=== PATIENT | female | born 1945 | race Caucasian/White ===

== ENCOUNTER 2016-06-02 14:48 | Inpatient (IN) | payer OTHER ==
[~2016-06-02] VITALS: Ht 162.6 cm; Wt 66.3 kg
[2016-06-02] VITALS (10 sets, daily range): BP systolic 80–141; BP diastolic 44–83
[~2016-06-02 14:48] MED LIST: ADVAIR 250/501 DISK IH; ALBUTEROL SULF8.5 GM IH; ALBUTEROL2.5 MG/3 M IH; AMLODIPINE BESY10 MG PO; AMOX TR-K CLV1 EAC4 PO; ASPIR-LOW81 MG PO; ASPIRIN EC325 MG PO; AUGMENTIN875 MG PO; CITALOPRAM HBR40 MG PO; COLACE100 MG PO; DUONEB 2.5-0.5 M3 ML IH; LIPITOR40 MG PO; LISINOPRIL20 MG PO; LISINOPRIL40 MG PO; LOMOTIL TABLET1 EACH PO; METOPROLOL SUCC25 MG PO; PEPCID20 MG PO; PRAVACHOL20 MG PO; TYLENOL REGULA325 MG PO; VENTOLIN HFA18 GM IH
[2016-06-02 20:12] LABS: BASE EXCESS 1.7 mEq/L (-3 to +3); BICARBONATE 27.2 mEq/L (22-26); CARBOXY HGB 1.6 % (0-5); METHEMOGLOBIN 1.8 % (0-1.5); PO2 94 mm Hg (80-100); pH 7.38 (7.35-7.45)
[2016-06-02 20:13] LABS: COMMENTS - BLOOD GASES A+C+; DEVICE VENT; FI02 40 %; PCO2 46 mm Hg (35-45); SITE RR
[2016-06-02 20:14] LABS: INSPIRATION TIME 1.05 seconds; MECHANICAL RATE 16 resp/min; MODE ACVC+; PEEP 5 CM/H20; TIDAL VOLUME 400 ML; TOTAL RESP RATE 16 resp/min
[2016-06-02 20:46] LABS: TROP-I INTERPRETATION NEGATIVE; TROPONIN-I 0.03 ng/mL (0.0-0.30)
[2016-06-02 20:59] LABS: METH RESISTANT S AUREUS PCR POSITIVE (NEGATIVE)
[2016-06-02 21:09] LABS: PROBE CHECK PASS
[2016-06-02 22:02] LABS: EOSINOPHIL (%) 0.1 % (0-5); HEMATOCRIT 31.4 % (36.0-46.0); IMMATURE GRANULOCYTE (%) 0.5 % (0.0-0.7); IMMATURE GRANULOCYTE COUNT 0.1 K/uL; LYMPHOCYTE COUNT 0.5 K/uL (1.0-2.8); MCH 26.2 PG (29.0-34.0); MCHC 30.3 G/DL (30.0-36.0); MCV 86.7 FL (83-99); MONOCYTE (%) 3.2 % (3-12); MONOCYTE COUNT 0.3 K/uL (0-0.8); NEUTROPHIL (%) 90.9 % (45-76); NEUTROPHIL COUNT 8.5 K/uL (1.8-6.4); RBC DIS.WIDTH-CV 14.8 % (11.8-14.6); RBC DIS.WIDTH-SD 46.8 % (39-53); RED BLOOD COUNT 3.62 M/uL (3.80-5.20); WHITE BLOOD COUNT 9.3 K/uL (4.1-10.2)
[2016-06-02 22:15] LABS: ANION GAP 10 MEQ/L (2-14); CHLORIDE 108 MEQ/L (99-109); MAGNESIUM 2.3 mg/dl (1.3-2.7); POTASSIUM 4.1 MEQ/L (3.7-5.4); SAMPLE HEMOLYSIS CHECK 1; SAMPLE ICTERIC CHECK 0; SAMPLE LIPEMIA CHECK 0; SODIUM 140 MEQ/L (136-147); TOTAL BILIRUBIN 0.4 MG/DL (0.0-1.0)
[2016-06-02 22:17] LABS: PROTHROMBIN TIME 10.4 (9.2-11.2)
[2016-06-02 22:21] LABS: ALKALINE PHOSPHATASE 67 IU/L (3-129); GFR ESTIMATE (CALCULATED) > 59 mL/min/; GLUCOSE 147 mg/dL (70-99); UREA NITROGEN (BUN) 12 mg/dL (9-23)
[2016-06-02 22:34] LABS: PTT 19.5 (25-32)
[2016-06-02 22:44] LABS: MEAN PLAT.VOLUME 11.3 uM^3 (9.5-12.4); PLAT.SUFFICIENCY DECREASED; PLATELET COUNT 28 K/uL (156-360)
[2016-06-03] VITALS (26 sets, daily range): BP systolic 71–155; BP diastolic 46–89
[2016-06-03 01:14] LABS: TROP-I INTERPRETATION NEGATIVE; TROPONIN-I 0.02 ng/mL (0.0-0.30)
[2016-06-03 02:50] LABS: ADD MIUA? YES; BILIRUBIN NEGATIVE; BLOOD MODERATE; COLOR YELLOW ((YELLOW)); GLUCOSE (STRIP) NEGATIVE; KETONES TRACE; LEUKOCYTES NEGATIVE; NITRITE NEGATIVE; PH, URINE 5.5 (5-8); PROTEIN (STRIP) TRACE; UROBILINOGEN 0.2 MG/DL (0.2-1.0)
[2016-06-03 03:16] LABS: EPITHELIAL CELLS RARE; MUCUS 3+; RED BLOOD CELLS 15-20 /HPF (0-5); WHITE BLOOD CELLS 0-5 /HPF (0-5)
[2016-06-03 03:17] LABS: BACTERIA 1+; CASTS PRESENT /LPF; CRYSTALS NONE SEEN; FINE GRANULAR CASTS RARE /LPF; HYALINE CASTS RARE /LPF; UCUL ADDED? NO
[2016-06-03 05:04] LABS: PROTHROMBIN TIME 10.5 (9.2-11.2)
[2016-06-03 05:11] LABS: HEMATOCRIT 26.8 % (36.0-46.0); MCH 26.4 PG (29.0-34.0); MCHC 30.6 G/DL (30.0-36.0); MCV 86.2 FL (83-99); RBC DIS.WIDTH-CV 14.5 % (11.8-14.6); RBC DIS.WIDTH-SD 43.9 % (39-53); RED BLOOD COUNT 3.11 M/uL (3.80-5.20); WHITE BLOOD COUNT 10.5 K/uL (4.1-10.2)
[2016-06-03 05:13] LABS: MEAN PLAT.VOLUME 9.9 uM^3 (9.5-12.4); PLATELET COUNT 136 K/uL (156-360)
[2016-06-03 05:22] LABS: TROP-I INTERPRETATION NEGATIVE; TROPONIN-I 0.03 ng/mL (0.0-0.30)
[2016-06-03 06:59] LABS: ALKALINE PHOSPHATASE 73 IU/L (3-129); ANION GAP 10 MEQ/L (2-14); CHLORIDE 107 MEQ/L (99-109); GFR ESTIMATE (CALCULATED) > 59 mL/min/; GLUCOSE 132 mg/dL (70-99); MAGNESIUM 2.2 mg/dl (1.3-2.7); POTASSIUM 3.8 MEQ/L (3.7-5.4); SAMPLE HEMOLYSIS CHECK 0; SAMPLE ICTERIC CHECK 0; SAMPLE LIPEMIA CHECK 0; SODIUM 140 MEQ/L (136-147); TOTAL BILIRUBIN 0.4 MG/DL (0.0-1.0); UREA NITROGEN (BUN) 13 mg/dL (9-23)
[2016-06-03 11:51] LABS: POINT-OF-CARE METER ID UU13113803
[2016-06-03 12:11] LABS: HEMATOCRIT 26.4 % (36.0-46.0); MCV 86.3 FL (83-99)
[2016-06-03 17:48] LABS: POINT-OF-CARE METER ID UU13113803
[2016-06-03 18:25] LABS: HEMATOCRIT 27.3 % (36.0-46.0); MCV 86.1 FL (83-99)
[2016-06-03 22:23] LABS: BASE EXCESS 3.1 mEq/L (-3 to +3); BICARBONATE 27.9 mEq/L (22-26); CARBOXY HGB 1.8 % (0-5); COMMENTS - BLOOD GASES A+C+; METHEMOGLOBIN 1.6 % (0-1.5); PCO2 43 mm Hg (35-45); PO2 84 mm Hg (80-100); SITE RR; pH 7.42 (7.35-7.45)
[2016-06-03 22:24] LABS: DEVICE VENT; FI02 30 %; INSPIRATION TIME 0.6 seconds; MECHANICAL RATE 12 resp/min; MODE A/C VC+; PEEP 5 CM/H20; TIDAL VOLUME 400 ML; TOTAL RESP RATE 15 resp/min
[2016-06-03 23:59] LABS: POINT-OF-CARE METER ID UU13113803
[2016-06-04] VITALS (24 sets, daily range): BP systolic 99–174; BP diastolic 44–130
[2016-06-04 06:33] LABS: HEMATOCRIT 28.8 % (36.0-46.0); MCH 26.3 PG (29.0-34.0); MCHC 30.6 G/DL (30.0-36.0); MEAN PLAT.VOLUME 10.1 uM^3 (9.5-12.4); PLATELET COUNT 163 K/uL (156-360); RBC DIS.WIDTH-CV 15.2 % (11.8-14.6); RBC DIS.WIDTH-SD 47.5 % (39-53); RED BLOOD COUNT 3.35 M/uL (3.80-5.20); WHITE BLOOD COUNT 11.5 K/uL (4.1-10.2)
[2016-06-04 07:01] LABS: ANION GAP 12 MEQ/L (2-14); CHLORIDE 109 MEQ/L (99-109); GFR ESTIMATE (CALCULATED) > 59 mL/min/; GLUCOSE 163 mg/dL (70-99); MAGNESIUM 2.2 mg/dl (1.3-2.7); POTASSIUM 3.3 MEQ/L (3.7-5.4); SAMPLE HEMOLYSIS CHECK 0; SAMPLE ICTERIC CHECK 0; SAMPLE LIPEMIA CHECK 0; SODIUM 146 MEQ/L (136-147); UREA NITROGEN (BUN) 16 mg/dL (9-23)
[2016-06-04 23:52] LABS: POINT-OF-CARE USER ID RADDRS44
[2016-06-05] VITALS (24 sets, daily range): BP systolic 88–165; BP diastolic 47–102
[2016-06-05 05:33] LABS: HEMATOCRIT 24.9 % (36.0-46.0); MCH 25.8 PG (29.0-34.0); MCHC 30.1 G/DL (30.0-36.0); MCV 85.6 FL (83-99); PLATELET COUNT 164 K/uL (156-360); RBC DIS.WIDTH-CV 15.4 % (11.8-14.6); RBC DIS.WIDTH-SD 48.3 % (39-53); RED BLOOD COUNT 2.91 M/uL (3.80-5.20)
[2016-06-05 06:49] LABS: ANION GAP 11 MEQ/L (2-14); CHLORIDE 109 MEQ/L (99-109); GFR ESTIMATE (CALCULATED) > 59 mL/min/; GLUCOSE 137 mg/dL (70-99); MAGNESIUM 2.2 mg/dl (1.3-2.7); POTASSIUM 2.8 MEQ/L (3.7-5.4); SAMPLE HEMOLYSIS CHECK 0; SAMPLE ICTERIC CHECK 0; SAMPLE LIPEMIA CHECK 0; SODIUM 146 MEQ/L (136-147)
[2016-06-05 07:04] LABS: UREA NITROGEN (BUN) 27 mg/dL (9-23)
[2016-06-05 18:31] LABS: POINT-OF-CARE METER ID UU13113748
[2016-06-06] VITALS (25 sets, daily range): BP systolic 92–193; BP diastolic 50–173
[2016-06-06 01:26] LABS: POINT-OF-CARE USER ID RADDRS44
[2016-06-06 05:54] LABS: POINT-OF-CARE USER ID RADDRS44
[2016-06-06 06:53] LABS: MCH 25.8 PG (29.0-34.0); MCHC 29.3 G/DL (30.0-36.0); MCV 87.9 FL (83-99); RBC DIS.WIDTH-CV 15.9 % (11.8-14.6)
[2016-06-06 06:56] LABS: ANION GAP 11 MEQ/L (2-14); CHLORIDE 106 MEQ/L (99-109); GFR ESTIMATE (CALCULATED) > 59 mL/min/; GLUCOSE 151 mg/dL (70-99); MAGNESIUM 2.4 mg/dl (1.3-2.7); PLATELET COUNT 278 K/uL (156-360); SAMPLE HEMOLYSIS CHECK 0; SAMPLE ICTERIC CHECK 0; SAMPLE LIPEMIA CHECK 0; SODIUM 140 MEQ/L (136-147); UREA NITROGEN (BUN) 35 mg/dL (9-23); WHITE BLOOD COUNT 19.3 K/uL (4.1-10.2)
[2016-06-06 06:58] LABS: POTASSIUM 4.5 MEQ/L (3.7-5.4)
[2016-06-06 12:46] LABS: POINT-OF-CARE METER ID UU13113748
[2016-06-06 17:32] LABS: POINT-OF-CARE METER ID UU13113748
[2016-06-07] VITALS (24 sets, daily range): BP systolic 74–154; BP diastolic 44–95
[2016-06-07 01:04] LABS: POINT-OF-CARE METER ID UU14162636
[2016-06-07 06:04] LABS: HEMATOCRIT 24.4 % (36.0-46.0); MCH 26.3 PG (29.0-34.0); MCHC 30.3 G/DL (30.0-36.0); MCV 86.8 FL (83-99); MEAN PLAT.VOLUME 9.4 uM^3 (9.5-12.4); PLATELET COUNT 203 K/uL (156-360); RBC DIS.WIDTH-CV 15.6 % (11.8-14.6); RBC DIS.WIDTH-SD 49.3 % (39-53); RED BLOOD COUNT 2.81 M/uL (3.80-5.20); WHITE BLOOD COUNT 8.8 K/uL (4.1-10.2)
[2016-06-07 06:22] LABS: ANION GAP 8 MEQ/L (2-14); CHLORIDE 110 MEQ/L (99-109); GFR ESTIMATE (CALCULATED) > 59 mL/min/; GLUCOSE 175 mg/dL (70-99); MAGNESIUM 2.5 mg/dl (1.3-2.7); POTASSIUM 4.4 MEQ/L (3.7-5.4); SAMPLE HEMOLYSIS CHECK 0; SAMPLE ICTERIC CHECK 0; SAMPLE LIPEMIA CHECK 0; SODIUM 142 MEQ/L (136-147); UREA NITROGEN (BUN) 41 mg/dL (9-23)
[2016-06-07 10:02] LABS: POINT-OF-CARE METER ID UU13113748
[2016-06-07 12:11] LABS: POINT-OF-CARE METER ID UU13113803; POINT-OF-CARE USER ID 606021424
[2016-06-08] VITALS (24 sets, daily range): BP systolic 81–147; BP diastolic 44–87
[2016-06-08 05:47] LABS: POINT-OF-CARE METER ID UU14162636
[2016-06-08 06:07] LABS: HEMATOCRIT 26.2 % (36.0-46.0); MCH 26.3 PG (29.0-34.0); MCHC 29.8 G/DL (30.0-36.0); MCV 88.2 FL (83-99); MEAN PLAT.VOLUME 9.7 uM^3 (9.5-12.4); PLATELET COUNT 259 K/uL (156-360); RBC DIS.WIDTH-CV 16.1 % (11.8-14.6); RBC DIS.WIDTH-SD 51.5 % (39-53); RED BLOOD COUNT 2.97 M/uL (3.80-5.20)
[2016-06-08 06:10] LABS: WHITE BLOOD COUNT 12.5 K/uL (4.1-10.2)
[2016-06-08 06:16] LABS: ANION GAP 8 MEQ/L (2-14); CHLORIDE 109 MEQ/L (99-109); GFR ESTIMATE (CALCULATED) 58 mL/min/; GLUCOSE 183 mg/dL (70-99); MAGNESIUM 2.7 mg/dl (1.3-2.7); POTASSIUM 5.1 MEQ/L (3.7-5.4); SAMPLE HEMOLYSIS CHECK 0; SAMPLE ICTERIC CHECK 0; SAMPLE LIPEMIA CHECK 0; SODIUM 142 MEQ/L (136-147); UREA NITROGEN (BUN) 49 mg/dL (9-23)
[2016-06-08 12:10] LABS: POINT-OF-CARE METER ID UU14162636
[2016-06-08 18:45] LABS: POINT-OF-CARE METER ID UU14162636
[2016-06-08 20:50] LABS: BASE EXCESS 1.9 mEq/L (-3 to +3); BICARBONATE 29.8 mEq/L (22-26); CARBOXY HGB 2.2 % (0-5); METHEMOGLOBIN 1.9 % (0-1.5); PO2 73 mm Hg (80-100)
[2016-06-08 20:51] LABS: COMMENTS - BLOOD GASES A+C+; DEVICE VENT; FI02 40 %; MECHANICAL RATE 12 resp/min; MODE AC; PCO2 68 mm Hg (35-45); PEEP 12 CM/H20; SITE RR; TIDAL VOLUME 450 ML; TOTAL RESP RATE 12 resp/min; pH 7.25 (7.35-7.45)
[2016-06-08 23:55] LABS: POINT-OF-CARE METER ID UU14162636
[2016-06-09] VITALS (33 sets, daily range): BP systolic 88–148; BP diastolic 43–74
[2016-06-09 05:20] LABS: POINT-OF-CARE METER ID UU14162636
[2016-06-09 06:44] LABS: ANION GAP 9 MEQ/L (2-14); CHLORIDE 107 MEQ/L (99-109); GFR ESTIMATE (CALCULATED) 47 mL/min/; GLUCOSE 177 mg/dL (70-99); MAGNESIUM 2.6 mg/dl (1.3-2.7); POTASSIUM 4.4 MEQ/L (3.7-5.4); SAMPLE HEMOLYSIS CHECK 0; SAMPLE ICTERIC CHECK 0; SAMPLE LIPEMIA CHECK 0; SODIUM 144 MEQ/L (136-147); UREA NITROGEN (BUN) 60 mg/dL (9-23)
[2016-06-09 07:16] LABS: HEMATOCRIT 23.2 % (36.0-46.0); MCH 26.1 PG (29.0-34.0); MCHC 29.7 G/DL (30.0-36.0); MCV 87.9 FL (83-99); MEAN PLAT.VOLUME 9.4 uM^3 (9.5-12.4); PLATELET COUNT 238 K/uL (156-360); RBC DIS.WIDTH-CV 15.9 % (11.8-14.6); RBC DIS.WIDTH-SD 50.8 % (39-53); RED BLOOD COUNT 2.64 M/uL (3.80-5.20); WHITE BLOOD COUNT 7.6 K/uL (4.1-10.2)
[2016-06-09 14:24] LABS: POINT-OF-CARE METER ID UU13113803
[2016-06-09 18:12] LABS: POINT-OF-CARE METER ID UU13113803
[2016-06-10] VITALS (23 sets, daily range): BP systolic 106–174; BP diastolic 55–112
[2016-06-10 00:02] LABS: POINT-OF-CARE METER ID UU14162636
[2016-06-10 06:35] LABS: POINT-OF-CARE METER ID UU13113803
[2016-06-10 06:37] LABS: ANION GAP 8 MEQ/L (2-14); CHLORIDE 107 MEQ/L (99-109); GFR ESTIMATE (CALCULATED) 58 mL/min/; GLUCOSE 182 mg/dL (70-99); MAGNESIUM 2.7 mg/dl (1.3-2.7); MCH 27.4 PG (29.0-34.0); MCHC 30.9 G/DL (30.0-36.0); MCV 88.8 FL (83-99); MEAN PLAT.VOLUME 9.7 uM^3 (9.5-12.4); PLATELET COUNT 250 K/uL (156-360); RBC DIS.WIDTH-CV 15.9 % (11.8-14.6); RBC DIS.WIDTH-SD 50.5 % (39-53); SAMPLE HEMOLYSIS CHECK 0; SAMPLE ICTERIC CHECK 0; SAMPLE LIPEMIA CHECK 0; SODIUM 144 MEQ/L (136-147); UREA NITROGEN (BUN) 52 mg/dL (9-23)
[2016-06-10 06:39] LABS: RED BLOOD COUNT 3.83 M/uL (3.80-5.20); WHITE BLOOD COUNT 11.1 K/uL (4.1-10.2)
[2016-06-10 06:40] LABS: POTASSIUM 5.3 MEQ/L (3.7-5.4)
[2016-06-10 12:22] LABS: POINT-OF-CARE METER ID UU13113803
[2016-06-10 17:47] LABS: POINT-OF-CARE METER ID UU14162636
[2016-06-11] VITALS: BP 155/88
== END 2016-06-11 01:11 | DRG 189 ==
LOC: 4WEST 14:48
PROVIDERS: Emergency Medicine; Internal Medicine Critical Care Medicine; Internal Medicine Nephrology
PROC: 5A0945Z Assistance with Respiratory Ventilation, 24-96 Consecutive Hours (ICD-10-PCS; principal; 2016-06-02)
PROC: 05HM33Z Insertion of Infusion Device into Right Internal Jugular Vein, Percutaneous Approach (ICD-10-PCS; 2016-06-07)
PROC: 30233N1 Transfusion of Nonautologous Red Blood Cells into Peripheral Vein, Percutaneous Approach (ICD-10-PCS; 2016-06-09)
DX: J96.21 Acute and chronic respiratory failure with hypoxia (principal); J15.212 Pneumonia due to Methicillin resistant Staphylococcus aureus; C34.90 Malignant neoplasm of unspecified part of unspecified bronchus or lung; R64 Cachexia; L89.150 Pressure ulcer of sacral region, unstageable; I10 Essential (primary) hypertension; E78.5 Hyperlipidemia, unspecified; I25.10 Atherosclerotic heart disease of native coronary artery without angina pectoris; M19.90 Unspecified osteoarthritis, unspecified site; E88.09 Other disorders of plasma-protein metabolism, not elsewhere classified; F17.210 Nicotine dependence, cigarettes, uncomplicated; Z51.5 Encounter for palliative care; D64.9 Anemia, unspecified; Z99.81 Dependence on supplemental oxygen; Z95.5 Presence of coronary angioplasty implant and graft; I25.2 Old myocardial infarction
CPT/HCPCS: 36600; 71010; 80048; 80053; 80202; 81003; 82040; 82803; 82948; 83605; 83735; 84100; 84484; 85014; 85018; 85025; 85027; 85610; 85730; 86850; 86900; 86901; 86920; 87040; 87070; 87077; 87147; 87186; 87205; 87641; 93005; 94002; 94003; 94640; 94640 76; 94644; 94645; 94760; 99202; C9113; J1644; J1815; J1940; J2060; J2543; J2704; J2765; J2920; J2930; J3010; J3370; J3475; J7030; J7050; J7120; P9016; S0028